=== PATIENT | female | born 1955 | race Caucasian/White ===

== ENCOUNTER → 2017-03-16 07:45 | Outpatient (CLI) | payer MEDICAID ==
[2014-11-29 07:58] VITALS: BMI 45.6
[~2017-03-16 07:45] MED LIST: EZFE 200200 MG PO; HYDROCHLOROT PO; HYDROCHLOROTH12.5 M1 PO; HYDROCODONE-APA1 TAB PO; MULTI-DAY VITAM1 TAB PO; NORVASC10 MG PO; VASOTEC20 MG PO
== END | disposition home or self-care (01) ==
LOC: D.LAB 07:45
DX: E16.2 Hypoglycemia, unspecified (principal)

== ENCOUNTER → 2017-06-14 16:27 | Outpatient (CLI) | payer MEDICAID ==
[2014-11-29 07:58] VITALS: BMI 45.6
== END | disposition home or self-care (01) ==
LOC: D.MAMMO 14:15
DX: Z12.31 Encounter for screening mammogram for malignant neoplasm of breast (principal)

== ENCOUNTER → 2018-06-26 20:58 | Outpatient (CLI) | payer MEDICAID ==
[2014-11-29 07:58] VITALS: BMI 45.6
== END | disposition home or self-care (01) ==
LOC: D.MAMMO 13:45
DX: Z12.31 Encounter for screening mammogram for malignant neoplasm of breast (principal)

== ENCOUNTER 2019-08-24 09:00 | Outpatient (CLI) | payer MEDICAID ==
[2014-11-29 07:58] VITALS: BMI 45.6
== END 2019-08-24 10:00 | disposition home or self-care (01) ==
LOC: D.MAMMO 09:00
PROVIDERS: ATTEND Family Medicine
DX: Z12.31 Encounter for screening mammogram for malignant neoplasm of breast (principal)

== ENCOUNTER 2020-12-05 14:10 | Outpatient (CLI) | payer BC ==
[2014-11-29 07:58] VITALS: BMI 45.6
== END 2020-12-05 23:59 | disposition home or self-care (01) ==
LOC: D.MAMMO 14:10
PROVIDERS: ATTEND Family Medicine
DX: Z12.31 Encounter for screening mammogram for malignant neoplasm of breast (principal)